=== PATIENT | female | born 1980 | race Two or more races ===

== ENCOUNTER 2024-03-13 02:32 | Emergency (ER) | payer BC ==
[~2024-03-13] VITALS: Ht 167.6 cm; Wt 74.8 kg
[2024-03-13] MEDS ORDERED: IBUP-1953 PO (03:08)
[2024-03-13] MEDS ORDERED: AMOX-430 PO (03:08)
[2024-03-13 04:11] VITALS: BP 120/67; TEMP 98.8; O2SAT 99
== END 2024-03-13 04:11 | disposition home or self-care (01) ==
LOC: ER 02:44
DX: S80.812A Abrasion, left lower leg, initial encounter (principal); L03.116 Cellulitis of left lower limb; Z91.018 Allergy to other foods; W55.01XA Bitten by cat, initial encounter; Y93.89 Activity, other specified; Y92.098 Other place in other non-institutional residence as the place of occurrence of the external cause; Y99.8 Other external cause status